=== PATIENT | female | born 1960 | race Caucasian/White ===

== ENCOUNTER 2021-10-03 05:41 | Outpatient (CLI) | payer BC ==
[~2021-10-03] VITALS: Ht 144.8 cm; Wt 63.1 kg
[2021-10-03] MEDS ORDERED: SUCR1TAB PO (14:01)
[2021-10-03] MEDS ORDERED: PANT40TA52 PO (14:01)
[2021-10-03] MEDS ORDERED: MONT-40 PO (14:01)
[2021-10-03] MEDS ORDERED: ALEN70SO4 PO (14:01)
[2021-10-03] MEDS ORDERED: FLUT15.845 NS (14:01)
[2021-10-03] MEDS ORDERED: CYAN1TAB26 PO (14:01)
[2021-10-03] MEDS ORDERED: ALBU1.25 INH (14:01)
== END 2021-10-03 14:03 | disposition home or self-care (01) ==
LOC: PREOP 05:41
PROVIDERS: ATTEND Surgery
DX: Z01.818 Encounter for other preprocedural examination (principal)

== ENCOUNTER 2021-10-12 06:49 | Day surgery (SDC) | payer BC ==
[~2021-10-12] VITALS: Ht 144.8 cm; Wt 63.1 kg
[~2021-10-12 06:49] MED LIST: ALBU1.25 INH; ALEN70SO4 PO; CYAN1TAB26 PO; FLUT15.845 NS; MONT-40 PO; PANT40TA52 PO; SUCR1TAB PO
[2021-10-12] MEDS ORDERED: LACTATED RINGERS 1,000 ML IV STA (07:01)
[2021-10-12] MEDS ORDERED: MIDAZOLAM 2 MG/2 ML (VERSED) VIAL ONE (07:08)
[2021-10-12] MEDS ORDERED: PROPOFOL INJECTION 50 ML IV ONE ×2 (07:09→08:28)
[2021-10-12] MEDS ORDERED: HURRICAINE EXT TUBE (BENZOCAINE) XX PRN (07:15)
[2021-10-12 07:16] VITALS: BP 139/79
--- NOTE | 2021-10-12 08:07 | Progress Note-Pre Operative ---
Pre-Operative Progress Note Date of Available H&P: Sep 24, 2021 Date H&P Reviewed: Oct 12, 2021 Time H&P Reviewed: 08:00 History & Physical: H&P Reviewed, Patient Examed, No changes noted Pre-Operative Diagnosis: family history colon cancer, hx price's, gerd ALDAIR SINGLETON DO Oct 12, 2021 08:07
[2021-10-12 08:56] VITALS: BP 92/56
--- NOTE | 2021-10-12 08:57 | Progress Note-Post Operative ---
Post-Operative Progess Note Surgeon (s)/Flag Football Coach (s) Surgeon ALDAIR SINGLETON DO Flag Football Coach: na Pre-Operative Diagnosis family history colon cancer, hx price's, gerd Post-Operative Diagnosis short segment barretts, sigmoid polyp Procedure & Operative Findings Date of Procedure 10/12/21 Procedure Performed/Findings egd c biopsies, colonoscopy c cold bx polypectomy Anesthesia Type per on air personality Estimated Blood Loss Estimated blood loss (mL): none Specimens/Packing Specimens Removed antrum, ge, sigmoid polyp ALDAIR SINGLETON DO Oct 12, 2021 08:57
--- NOTE | 2021-10-12 08:59 | Discharge Inst-Simple/Standard ---
Discharge Inst-Standard Patient Instructions/Follow Up Plan of Care/Instructions/FU: 2 weeks Ricco Activity as Tolerated: Yes Discharge Diet: Regular Diet ALDAIR SINGLETON DO Oct 12, 2021 08:59
[2021-10-12 09:01] VITALS: BP 94/57
[2021-10-12 09:04] VITALS: BP 102/67
[2021-10-12 09:10] VITALS: BP 126/78
[2021-10-12 09:31] VITALS: BP 126/78
--- NOTE | 2021-10-12 10:00 | Anesthesia-General Post-Op ---
MAC Patient Condition Mental Status/LOC: Same as Preop Cardiovascular: Satisfactory Nausea/Vomiting: Absent Respiratory: Satisfactory Pain: Controlled Complications: Absent Post Op Complications Complications None Follow Up Care/Instructions Patient Instructions None needed. Anesthesiology Discharge Order Discharge Order Patient is doing well, no complaints, stable vital signs, no apparent adverse anesthesia problems. No complications reported per nursing. KRISTA PACHECO CRNA Oct 12, 2021 10:00
--- NOTE | 2021-10-12 15:00 | OPERATIVE REPORT ---
DATE OF SERVICE: 10/12/2021 PREOPERATIVE DIAGNOSIS: Family history of colon cancer, history of Rahman's, gastroesophageal reflux disease. POSTOPERATIVE DIAGNOSES: Short segment Rahman's, sigmoid polyp. PROCEDURE: EGD with biopsies, colonoscopy with cold biopsy polypectomy. SURGEON: Aldair Chacko DO ANESTHESIA: Per [employer]. ESTIMATED BLOOD LOSS: None. COMPLICATIONS: None. SPECIMENS: Antrum, GE junction and sigmoid colon polyp. INDICATIONS: The patient is a 61-year-old female with family history of colon cancer and history of Rahman's and GERD. She understands risks and benefits of procedure and wishes to proceed. Consent was signed in the chart. DESCRIPTION OF PROCEDURE: The patient was taken to the endoscopy suite, placed in the left lateral recumbent position. Timeout was performed. Scope was inserted in mouth, down the esophagus, stomach and into the duodenum without difficulty. No polyps, masses or ulcerations. Scope was slowly retracted back into the stomach where it was further insufflated. Biopsy of the antrum was obtained. No polyps, masses or ulcerations. Scope was retroflexed noting no other pathology. Scope was returned to its normal position, slowly withdrawn to distal esophagus, appears to be a short segment of Rahman's. Four quadrant biopsies were obtained. Scope was slowly retracted back until completely removed. Digital rectal exam was performed. No palpable polyps, masses or ulcerations. Scope was inserted in the rectum and advanced all the way to cecum with minimal difficulty. The ileocecal valve was intubated, had normal appearance. Scope was returned back into the colon, cecum had no polyps, masses or ulcerations. Scope was then slowly retracted. Prep was adequate with irrigation and suction. There were no polyps, masses or ulcerations in the cecum, ascending, transverse and descending colon. In the distal sigmoid colon, a very small polyp was present, which cold biopsy polypectomy was performed. No other pathology noted. Once in the rectum, scope was retroflexed noting no other pathology. Scope was returned to its normal position, slowly withdrawn until completely removed. The patient tolerated procedure well without any complications and was taken to the recovery room in stable condition. RECOMMENDATIONS: The patient will need repeat colonoscopy in 5 years. Any issues before that be seen at that time. The patient will continue on current medications for her Rahman's. We will await biopsy results. We would recommend likely repeat EGD in 2 to 3 years. Job ID: [id number] DocumentID: [id number] Dictated Date: 10/12/2021 09:02:18 Medical Device Assembler Date: 10/12/2021 15:00:18 Dictated By: ALDAIR CHACKO DO
== END 2021-10-12 09:40 | disposition home or self-care (01) ==
LOC: ENDO 06:49
PROVIDERS: ATTEND Surgery
DX: Z12.11 Encounter for screening for malignant neoplasm of colon (principal); K63.5 Polyp of colon; K22.70 Barrett's esophagus without dysplasia; K21.00 Gastro-esophageal reflux disease with esophagitis, without bleeding; K29.70 Gastritis, unspecified, without bleeding; Z80.0 Family history of malignant neoplasm of digestive organs; Z28.310 Unvaccinated for COVID-19; Z87.891 Personal history of nicotine dependence; Z79.899 Other long term (current) drug therapy

== ENCOUNTER → 2022-08-16 | Outpatient (CLI) | payer BC ==
--- NOTE | 2022-08-16 15:00 | Diagnostic Imaging Report ---
Indication: Routine screening Comparison is made with prior mammogram from 07/05/2021 and 01/29/2019. 2-D and 3-D bilateral screening mammography was performed with CAD. Scattered fibroglandular densities are identified bilaterally. The parenchymal pattern is stable. No mass or malignant-appearing microcalcifications are seen. Axillae are unremarkable. IMPRESSION: BI-RADS Category 1 No mammographic features suspicious for malignancy are identified. ACR BI-RADS Category 1: Negative. Result letter will be mailed to the patient. Note: At least 10% of breast cancer is not imaged by mammography. Dictated by: Dictated on workstation # [id number]
== END ==
LOC: RAD 08:35
PROVIDERS: ATTEND Nurse Practitioner
DX: Z12.31 Encounter for screening mammogram for malignant neoplasm of breast (principal)
CPT/HCPCS: 77063; 77067